=== PATIENT | female | born 1970 | race Caucasian/White ===

== ENCOUNTER 2018-06-12 09:05 | Day surgery (SDC) | payer OTHER ==
[2018-06-12] MEDS ORDERED: PERCOCET 5-3251 EACH PO (15:34)
[2018-06-12] MEDS ORDERED: COLACE100 MG PO (15:55)
== END 2018-06-12 17:40 | disposition home or self-care (01) ==
LOC: CIR.AMB 09:05
DX: K64.8 Other hemorrhoids (principal); K64.4 Residual hemorrhoidal skin tags

== ENCOUNTER → 2018-10-27 | Emergency (ER) | payer OTHER ==
[~2018-10-27] VITALS: Ht 165.1 cm; Wt 72.6 kg
[~2018-10-27] MED LIST: COLACE100 MG PO; PERCOCET 5-3251 EACH PO
== END | disposition home or self-care (01) ==
LOC: ER 18:03
DX: N39.0 Urinary tract infection, site not specified (principal)

== ENCOUNTER 2022-01-04 09:20 | Outpatient (CLI) | payer OTHER | END 2022-01-04 09:21 | disposition home or self-care (01) | LOC: LAB 09:20 | PROVIDERS: ATTEND Obstetrics & Gynecology | DX: R07.9 Chest pain, unspecified (principal); N91.1 Secondary amenorrhea; R05.9 Cough, unspecified ==

== ENCOUNTER 2022-01-23 09:20 | Day surgery (SDC) | payer OTHER ==
[~2022-01-23 09:20] MED LIST changes: +CRESTOR10 MG PO
== END 2022-01-23 17:20 | disposition home or self-care (01) ==
LOC: CIR.AMB 09:20
PROVIDERS: ATTEND Obstetrics & Gynecology
DX: N84.0 Polyp of corpus uteri (principal); N72 Inflammatory disease of cervix uteri; Z20.822 Contact with and (suspected) exposure to COVID-19; Z91.041 Radiographic dye allergy status

== ENCOUNTER 2023-01-01 10:56 | Emergency (ER) | payer OTHER ==
[~2023-01-01] VITALS: Ht 165.1 cm; Wt 81.6 kg
[2023-01-01] MEDS ORDERED: COZAAR100 MG PO (14:31)
== END 2023-01-01 14:48 | disposition home or self-care (01) ==
LOC: ER 10:56
DX: R07.9 Chest pain, unspecified (principal); I10 Essential (primary) hypertension; Z91.041 Radiographic dye allergy status

== ENCOUNTER 2023-08-23 20:29 | Emergency (ER) | payer OTHER ==
[~2023-08-23] VITALS: Ht 165.1 cm; Wt 80.7 kg
[~2023-08-23 20:29] MED LIST changes: +COZAAR100 MG PO
[2023-08-23] MEDS ORDERED: LEVOFLOXACIN750 MG PO (20:56)
[2023-08-23] MEDS ORDERED: METOCLOPRAMIDE HCL 5 MG/ML VIAL IM STA (21:45)
[2023-08-23] MEDS ORDERED: MECLIZINE HCL 25 MG TABLET PO STA (21:46)
[2023-08-23] MEDS ORDERED: RINGERS SOLUTION,LACTATED 1,000 ML IV STA (21:46)
[2023-08-23 22:01] LABS: HEMATOCRIT 37.6 % (36.0-45.00); HEMOGLOBIN 12.7 g/dL (12.0-15.00); MEAN CELL VOLUME 89.8 fL (80.00-100.00); MEAN CORPUSCULAR HEMOGLOBIN 30.4 pg (27.00-32.0); MEAN CORPUSCULAR HGB CONC 33.8 g/dl (32.0-36.0); PLATELET COUNT 273 K/uL (150-450); RED BLOOD COUNT 4.19 M/uL (4.00-6.00); RED CELL DISTRIBUTION WIDTH 14.7 % (11.5-14.5)
[2023-08-23 22:40] LABS: ALBUMIN 3.7 gm/dL (3.4-5.0); BILIRUBIN TOTAL 0.46 mg/dL (0.3-1.2); CALCIUM 9.3 mg/dL (8.5-10.1); CREATININE SERUM 0.72 mg/dL (0.55-1.02); GFR 84.41; GLOBULINA 4.2 G/DL (2.4-3.5); POTASSIUM 3.61 mEq/L (3.5-5.1); TOTAL PROTEIN 7.9 gm/dL (6.4-8.2)
== END 2023-08-23 23:15 | disposition home or self-care (01) ==
LOC: ER 20:29
DX: H81.10 Benign paroxysmal vertigo, unspecified ear (principal); I10 Essential (primary) hypertension; Z91.041 Radiographic dye allergy status

== ENCOUNTER 2024-06-21 13:31 | Emergency (ER) | payer OTHER ==
[~2024-06-21] VITALS: Ht 165.1 cm; Wt 79.4 kg
[~2024-06-21 13:31] MED LIST changes: +LEVOFLOXACIN750 MG PO
[2024-06-21] MEDS ORDERED: ROSUVASTATIN CA10 MG PO (14:42)
[2024-06-21] MEDS ORDERED: CLARITIN10 M1 (14:42)
[2024-06-21] MEDS ORDERED: LOSARTAN POTASS50 MG PO (14:43)
[2024-06-21] MEDS ORDERED: ENALAPRILAT DIHYDRATE 1.25 MG/ML VIAL IV ONE (16:00)
[2024-06-21] MEDS ORDERED: ONDANSETRON HCL 2 MG/ML VIAL IV ONE (16:15)
[2024-06-21] MEDS ORDERED: SUMATRIPTAN SUCCINATE 6 MG/0.5 ML VIAL SUBCUTANEO ONE (16:15)
[2024-06-21 16:53] LABS: HEMATOCRIT 39.4 % (36.0-45.00); HEMOGLOBIN 13.2 g/dL (12.0-15.00); MEAN CELL VOLUME 92.6 fL (80.00-100.00); MEAN CORPUSCULAR HEMOGLOBIN 30.9 pg (27.00-32.0); MEAN CORPUSCULAR HGB CONC 33.4 g/dl (32.0-36.0); PLATELET COUNT 332 K/uL (150-450); RED BLOOD COUNT 4.26 M/uL (4.00-6.00); RED CELL DISTRIBUTION WIDTH 13.7 % (11.5-14.5)
[2024-06-21 17:09] LABS: ALBUMIN 4.5 gm/dL (3.4-5.0); BILIRUBIN TOTAL 0.37 mg/dL (0.3-1.2); CALCIUM 9.8 mg/dL (8.5-10.1); CREATININE SERUM 0.65 mg/dL (0.55-1.02); GFR 94.63; GLOBULINA 4.1 G/DL (2.4-3.5); POTASSIUM 4.08 mEq/L (3.5-5.1); TOTAL PROTEIN 8.6 gm/dL (6.4-8.2)
[2024-06-21] MEDS ORDERED: BUTALB-ACETAMI1 EAC2 PO (18:36)
[2024-06-21] MEDS ORDERED: KETOROLAC TROMETHAMINE 30 MG VIAL IV ONE (19:00)
== END 2024-06-21 19:31 | disposition home or self-care (01) ==
LOC: ER 13:33
PROVIDERS: General Practice
DX: R51.9 Headache, unspecified (principal); R42 Dizziness and giddiness; Z20.822 Contact with and (suspected) exposure to COVID-19; I10 Essential (primary) hypertension; Z91.041 Radiographic dye allergy status

== ENCOUNTER 2025-05-17 14:29 | Emergency (ER) | payer OTHER ==
[~2025-05-17] VITALS: Ht 165.1 cm; Wt 88.5 kg
[~2025-05-17 14:29] MED LIST changes: +BUTALB-ACETAMI1 EAC2 PO; +CLARITIN10 M1; +LOSARTAN POTASS50 MG PO; +ROSUVASTATIN CA10 MG PO
[2025-05-17] MEDS ORDERED: SINGULAIR10 MG PO (16:00)
[2025-05-17] MEDS ORDERED: 0.9 % SODIUM CHLORIDE 1,000 ML IV ONE (16:15)
[2025-05-17] MEDS ORDERED: KETOROLAC TROMETHAMINE 30 MG VIAL IV ONE (16:15)
[2025-05-17] MEDS ORDERED: ONDANSETRON HCL 2 MG/ML VIAL IV ONE (16:15)
[2025-05-17] MEDS ORDERED: FAMOtidine 10 MG/ML (4ML VIAL) IV ONE (16:15)
[2025-05-17 17:43] LABS: BASO % 0.3 % (0.1-1.2); EOS # 0.02 (0.04-0.54); EOS % 0.3 % (0.7-7.0); LYMPH # 0.42 (1.18-3.74); LYMPH % 5.9 % (19.3-53.1); MEAN PLATELET VOLUME 9.30 fl (9.4-12.4); MONO # 0.57 (0.24-0.82); MONO % 8.0 % (4.7-12.5); NEUT # 6.09 (1.56-6.13); NEUT % 85.1 % (34.0-71.1); RED CELL DISTRIBUTION WIDTH 13.9 % (11.6-14.4)
[2025-05-17 18:02] LABS: COVID-19 AG NEGATIVE (NEGATIVE)
[2025-05-17 18:21] LABS: ALT/SGPT 143.0 U/L (12-78); AST/SGOT 96.0 U/L (15-37); BILIRUBIN TOTAL 0.38 mg/dL (0.3-1.2); BUN CREA RATIO 19.0 (7.0-25.0); CREATININE SERUM 0.78 mg/dL (0.55-1.02); GFR 76.4; GLOBULINA 4.1 G/DL (2.4-3.5); GLUCOSE FASTING 149.0 mg/dL (65-100); OSMOLALITY SERUM 279.0 MOSM/KG (275-295)
[2025-05-17] MEDS ORDERED: OSEL75CA PO (18:27)
[2025-05-17] MEDS ORDERED: PEPCID AC20 MG PO (18:27)
== END 2025-05-17 20:01 | disposition home or self-care (01) ==
LOC: ER 14:29
PROVIDERS: General Practice
DX: J00 Acute nasopharyngitis [common cold] (principal); Z20.822 Contact with and (suspected) exposure to COVID-19; I10 Essential (primary) hypertension; G47.30 Sleep apnea, unspecified; Z88.8 Allergy status to other drugs, medicaments and biological substances